=== PATIENT | female | born 2000 | race Caucasian/White ===

== ENCOUNTER 2023-03-21 13:15 | Emergency (ER) | payer MEDICAID ==
[~2023-03-21] VITALS: Ht 152.4 cm; Wt 49.4 kg
[2023-03-21] MEDS ORDERED: LORAZEPAM 1 MG TABLET PO ONE (13:30)
[2023-03-21] MEDS ORDERED: LORAZEPAM 0.5 MG TABLET ONE (13:33)
--- NOTE | 2023-03-21 13:51 | NUR ---
Patient discharged to home in stable condition, ambulating. Written and verbal after care instructions given. Patient verbalizes understanding of instruction.
[2023-03-21 13:52] VITALS: BP 115/71
== END 2023-03-21 13:53 | disposition home or self-care (01) ==
LOC: ER 13:30
DX: F41.9 Anxiety disorder, unspecified (principal)